=== PATIENT | male | born 1990 | race American Indian/Alaskan Native ===

== ENCOUNTER 2018-01-04 10:03 | Emergency (ER) | payer SELFPAY ==
[2018-01-04 10:22] VITALS: BP 126/80
--- NOTE | 2018-01-04 11:40 | Emergency Department Report ---
HPI - General Chief Complaint: Urogenital-Male Time Seen by Provider: 01/04/18 11:36 - HPI HPI: 27-year-old male presents to the emergency department with some burning with urination and penile discharge for the past week. He just recently got a text message from his partner saying that she was diagnosed and treated for chlamydia and has proof of that paperwork. He is unsure whether he has ever had a STD in the past. No penile or testicular lesions or pain. No fever, nausea or vomiting. No PCP. Past medical history otherwise. ED Past Medical Hx - Past Medical History Previous Medical History?: No - Surgical History Past Surgical History?: No - Social History Smoking Status: Current Every Day Smoker Substance Use Type: Alcohol, Marijuana - Medications Home Medications: Home Medications Medication Instructions Recorded Confirmed Last Taken Type Azithromycin [Zithromax TAB] 2,000 mg PO QDAY #8 tablet 01/04/18 Unknown Rx ED Review of Systems ROS: Stated complaint: PENILE DISCHARGE Other details as noted in HPI Comment: All other systems reviewed and negative Constitutional: denies: chills, fever Eyes: denies: eye pain, eye discharge, vision change ENT: denies: ear pain, throat pain Respiratory: denies: cough, shortness of breath, wheezing Cardiovascular: denies: chest pain, palpitations Gastrointestinal: denies: abdominal pain, nausea, diarrhea Genitourinary: dysuria, discharge Musculoskeletal: denies: back pain, joint swelling, arthralgia Skin: denies: rash, lesions Neurological: denies: headache, weakness, paresthesias Physical Exam - Physical Exam Vital Signs: Vital Signs 01/04/18 10:19 Temperature 97.9 F Pulse Rate 59 L Respiratory 18 Rate Blood Pressure 126/80 O2 Sat by Pulse 100 Oximetry Physical Exam: GENERAL: The patient is well-developed well-nourished. HENT: Normocephalic. Atraumatic. Patient has moist mucous membranes. EYES: Pupils equal reactive to light bilaterally. NECK: Supple. Trachea is midline. CHEST/LUNGS: Clear to auscultation. There is no respiratory distress noted. HEART/CARDIOVASCULAR: Regular. There is no tachycardia. There is no murmur. ABDOMEN: There is no abdominal distention. SKIN: Skin is warm and dry. No penile or testicular lesions. NEURO: The patient is awake, alert, and oriented. The patient is cooperative. The patient has no focal neurologic deficits. The patient has normal speech and gait. MUSCULOSKELETAL: There is no tenderness or deformity. There is no limitation range of motion. There is no evidence of acute injury. : No penile or testicular lesions. No current discharge seen coming from the urethra. ED Course Vital Signs 01/04/18 10:19 Temperature 97.9 F Pulse Rate 59 L Respiratory 18 Rate Blood Pressure 126/80 O2 Sat by Pulse 100 Oximetry - Pulse Oximetry Interpretation Digit-Finger Initial Pulse Oximetry Readin O2 Sat by Pulse Oximetry: 100 Actions Taken: none Additional Comments: normal ED Medical Decision Making - Medical Decision Making There are no obvious current lesions or any discharge from the penis but the patient has proof of exposure to a partner with gonorrhea. He'll be treated outpatient with a prescription for 2 g azithromycin and has been given referrals for the health department and [facility]. - Differential Diagnosis urethritis, gonorrhea, chlamydia, UTI Critical Care Time: No Critical care attestation.: If time is entered above; I have spent that time in minutes in the direct care of this critically ill patient, excluding procedure time. ED Disposition Clinical Impression: Exposure to STD Disposition: DC-01 TO HOME OR SELFCARE Is pt being admited?: No Condition: Stable Instructions: Safe Sex (ED), Nonspecific Urethritis in Men (ED) Additional Instructions: Please follow up with a primary care physician in the next few days. I have given you a referral for the health Department for any further follow-up or testing regarding STDs. Please refrain from any sexual activity for at least 1 week after taking her medication. Return to the emergency Department with any worsening of your symptoms or any acute distress. Prescriptions: Azithromycin [Zithromax TAB] 2,000 mg PO QDAY #8 tablet Referrals: [facility] [Outside] - 3-5 Days [facility] [Outside] - 3-5 Days Time of Disposition: 11:40
== END 2018-01-04 11:52 | disposition home or self-care (01) ==
LOC: ED 10:03
DX: R36.9 Urethral discharge, unspecified (principal); F17.200 Nicotine dependence, unspecified, uncomplicated; F12.10 Cannabis abuse, uncomplicated
CPT/HCPCS: 99282